=== PATIENT | male | born 1980 ===

== ENCOUNTER 2019-01-15 08:58 | Emergency (ER) | payer OTHER ==
[~2019-01-15] VITALS: Ht 172.7 cm; Wt 81.6 kg
== END 2019-01-15 10:53 | disposition home or self-care (01) ==
LOC: ER 08:58
DX: M62.838 Other muscle spasm (principal)

== ENCOUNTER 2020-09-06 10:43 | Emergency (ER) | payer OTHER ==
[~2020-09-06] VITALS: Ht 172.7 cm; Wt 74.8 kg
[2020-09-06] MEDS ORDERED: ESCITALOPRA5 MG/5 ML (11:24)
[2020-09-06] MEDS ORDERED: KETO10TA2 PO (13:58)
[2020-09-06] MEDS ORDERED: MUPIROCIN1 G1 TOP (13:58)
[2020-09-06] MEDS ORDERED: DUI500 PO (13:58)
== END 2020-09-06 14:04 | disposition home or self-care (01) ==
LOC: ER 10:43
DX: S93.492S Sprain of other ligament of left ankle, sequela (principal); X50.0XXS Overexertion from strenuous movement or load, sequela